=== PATIENT | male | born 2000 | race Caucasian/White ===

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

== ENCOUNTER 2021-04-15 09:29 | Emergency (ER) | payer OTHER, MEDICAID ==
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
== END 2021-04-15 10:57 | disposition home or self-care (01) ==
LOC: LL.ED 09:29
DX: S51.812A Laceration without foreign body of left forearm, initial encounter (principal); S00.83XA Contusion of other part of head, initial encounter; W26.8XXA Contact with other sharp object(s), not elsewhere classified, initial encounter; W22.8XXA Striking against or struck by other objects, initial encounter
CPT/HCPCS: 12002; 99282-25; 99284

== ENCOUNTER 2021-10-26 13:55 | Emergency (ER) | payer OTHER, MEDICAID ==
[2021-10-26] MEDS ORDERED: Sodium Chloride 0.9% 10 ML Syringe FLUSH PRN (13:59)
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
[2021-10-26] MEDS ORDERED: Iopamidol 612 MG/ML 100 ML Bottle IVPUSH ONE (14:08)
[2021-10-26 14:34] LABS: CHLORIDE,CL 104 mmol/L (98-107); SODIUM,NA 141 mmol/L (136-145)
[2021-10-26 14:40] LABS: ANION GAP 15.2 meq/L (7-15)
[2021-10-26] MEDS ORDERED: Ibuprofen 400 MG Tab PO PRN (21:30)
[2021-10-27 02:20] LABS: BARBITURATE SCREEN,URINE NEGATIVE (NEGATIVE); BENZODIAZEPINES SCREEN,URINE NEGATIVE (NEGATIVE); EDDP,URINE SCREEN NEGATIVE (NEGATIVE)
[2021-10-27 02:21] LABS: TCA SCREEN,URINE NEGATIVE (NEGATIVE); THC SCREEN,URINE 50 NG/ML NEGATIVE (NEGATIVE)
[2021-10-27 02:23] LABS: BUPRENORPHINE SCREEN,URINE NEGATIVE (NEGATIVE)
== END 2021-10-27 09:50 ==
LOC: LL.ED 13:55
DX: F32.9 Major depressive disorder, single episode, unspecified (principal); Z20.822 Contact with and (suspected) exposure to COVID-19
CPT/HCPCS: 36415; 70450; 71045; 71260; 72125; 72170; 74177; 80053; 80143; 80179; 80305; 80307; 81001; 82150; 83690; 83735; 84443; 85025; 87635; 93005; 93010; 99284; 99285; A9270; Q9967; U0002